=== PATIENT | male | born 1970 | race Caucasian/White ===

== ENCOUNTER 2023-03-06 07:04 | Emergency (ER) | payer OTHER ==
[~2023-03-06] VITALS: Ht 170.2 cm; Wt 98.9 kg
[2023-03-06] MEDS ORDERED: TRELEGY ELLIPT1 EAC1 IH (07:38)
[2023-03-06] MEDS ORDERED: ZYRTEC10 M3 PO (07:39)
[2023-03-06] MEDS ORDERED: CHLORTHALIDONE25 MG PO (07:39)
[2023-03-06] MEDS ORDERED: FLONASE16 GM NS (07:40)
== END 2023-03-06 13:22 | disposition home or self-care (01) ==
LOC: ER 07:05
DX: S20.211A Contusion of right front wall of thorax, initial encounter (principal); W07.XXXA Fall from chair, initial encounter; Y93.89 Activity, other specified; Y92.59 Other trade areas as the place of occurrence of the external cause; Y99.9 Unspecified external cause status; Z87.09 Personal history of other diseases of the respiratory system; E03.9 Hypothyroidism, unspecified